=== PATIENT | female | born 2000 | race Caucasian/White ===

== ENCOUNTER 2023-04-01 21:02 | Emergency (ER) | payer OTHER ==
[~2023-04-01] VITALS: Ht 167.6 cm; Wt 86.2 kg
[2023-04-01 21:13] VITALS: BP 131/72
--- NOTE | 2023-04-01 21:21 | NUR ---
TO BED 8 FOLLOWING TRIAGE AFTER OBTAINING UA
--- NOTE | 2023-04-01 21:30 | NUR ---
22 Y/O F FROM HOME 13 WEEKS PRESENTS WITH NV XMORNING, PT STATED SHE TOOK ZOFRAN WITH UNRELIEF. PT STATED SHE HASNT BEEN ABLE TO HOLD ANY WATER DOWN. PT IS A&OX4, SKIN INTACT, RESPIRATIONS EVEN AND UNLABORED. PMH- PT DENIES NKA
[2023-04-01] MEDS ORDERED: ONDANSETRON 4 MG/2 ML VIAL IVP ONE (23:35)
[2023-04-01 23:50] LABS: APPEARANCE,URINE CLEAR (CLEAR); BILIRUBIN,URINE NEGATIVE (NEGATIVE); BLOOD, URINE NEGATIVE (NEGATIVE); COLOR,URINE YELLOW (YELLOW); LEUKOCYTE ESTERASE ,URINE NEGATIVE (NEGATIVE); NITRITE, URINE NEGATIVE (NEGATIVE); UGLUCOSE NEGATIVE (NEGATIVE)
[2023-04-02 00:03] LABS: BASOPHILS % (AUTO) 0.2 % (0.0-2.0); EOSINOPHILS # (AUTO) 0.1 K/uL (0-0.4); EOSINOPHILS % (AUTO) 0.5 % (0.0-4.0); HEMATOCRIT 35.9 % (36-48); HEMOGLOBIN 12.1 g/dL (12.0-16.0); LYMPHOCYTES # (AUTO) 1.6 K/uL (2.5-16.5); LYMPHOCYTES % (AUTO) 14.7 % (20.5-51.1); MEAN CORPUSCULAR HEMOGLOBIN 27 pg (27-31); MEAN CORPUSCULAR HGB CONC 34 g/dL (33-37); MEAN CORPUSCULAR VOLUME 80.9 fL (80-94); MONOCYTES # (AUTO) 0.7 K/uL (0.8-1.0); MONOCYTES % (AUTO) 6.4 % (1.7-9.3); NEUTROPHILS # (AUTO) 8.6 K/uL (1.8-7.7); NEUTROPHILS % (AUTO) 78.2 % (42.2-75.2); PLATELET COUNT (AUTO) 229 K/uL (140-450); RED BLOOD CELL COUNT(AUTO) 4.44 MIL/uL (4.20-5.40); RED CELL DISTRIBUTION WIDTH 13.2 % (11.6-13.7)
[2023-04-02 00:19] LABS: ALBUMIN 3.5 g/dL (3.4-5.0); ANION GAP 15.3 (8-16); CARBON DIOXIDE 22.4 mmol/L (21-32); CREATININE 0.5 mg/dL (0.6-1.3); POTASSIUM 3.7 mmol/L (3.5-5.1); TOTAL BILIRUBIN 0.3 mg/dL (0.0-1.0)
--- NOTE | 2023-04-02 01:57 | NUR ---
Dr. Del Rosario examining patient.
[2023-04-02] MEDS ORDERED: NACL 0.9% 1,000 ML IV ONE (02:00)
[2023-04-02] MEDS ORDERED: ONDA4SOL8 PO (03:20)
--- NOTE | 2023-04-02 03:20 | NUR ---
Patient discharged with v/s stable. Written and verbal after care instructions given and explained. Patient alert, oriented and verbalized understanding of instructions. Ambulatory with steady gait. All questions addressed prior to discharge. ID band removed. Patient advised to follow up with PMD. Rx of zofran given. Opportunity to ask questions provided and answered. dr. curtis stoll reinforced
--- NOTE | 2023-04-02 03:28 | NUR ---
The patient's care was reviewed and supervised by Kristin See RN, RN.
== END 2023-04-02 03:20 | disposition home or self-care (01) ==
LOC: MED 21:02
DX: O21.1 Hyperemesis gravidarum with metabolic disturbance (principal); Z3A.13 13 weeks gestation of pregnancy; Z79.899 Other long term (current) drug therapy
CPT/HCPCS: 36415; 76801; 80053; 81003; 81025; 84702; 85025; 86900; 86901; 96361; 96374; 99285; J2405; J7030; Q0092